=== PATIENT | female | born 1995 | race American Indian/Alaskan Native ===

== ENCOUNTER 2020-10-04 18:25 | Emergency (ER) | payer SELFPAY | END 2020-10-04 23:10 | disposition left against medical advice (07) | LOC: ED 18:25 ==

== ENCOUNTER 2020-10-05 10:36 | Emergency (ER) | payer BC ==
--- NOTE | 2020-10-05 12:04 | Event Note ---
ED Screening Note ED Screening Note: N/V began a week ago 4-5 x a day states that her panic attacks have gotten worse she denies marijuana use no diarrhea states she takes zofran at home with some relief takes hydroxyzine and escitalopram at home constipation for a week can keep liquids down only pmhx anxiety no allergies to meds LNMP 2 days ago no abd surgeries This initial assessment/diagnostic orders/clinical plan/treatment(s) is/are subject to change based on patients health status, clinical progression and re- assessment by fellow clinical providers in the ED. Further treatment and workup at subsequent clinical providers discretion. Patient/guardian urged not to elope from the ED as their condition may be serious if not clinically assessed and managed. Initial orders include: labs, UA, XR
--- NOTE | 2020-10-05 13:53 | Emergency Department Report ---
ED General Adult HPI - General Chief complaint: Nausea/Vomiting/Diarrhea Stated complaint: ABD PAIN/VOMITING/CHEST PAIN Time Seen by Provider: 10/05/20 12:01 Source: patient Mode of arrival: Ambulatory Limitations: No Limitations - History of Present Illness Initial comments: 25-year-old -[place] Citizen female presents to the emergency room reporting she has had nausea and vomiting for 1 week. She reports that she has been having a panic attack. Patient reports that she has a history of panic attacks and is currently taking Lexapro 5 mg, Zofran 4 mg and Vistaril 50 mg daily. Patient states that she typically will have nausea and vomiting with her panic attacks. Patient does admit that she has been off her medications for a week and got refi lled on 10/04/2020. Patient reports her last menstrual period was 10/02/2020. Patient reports she is followed by Dr. Lugo for her mental health and last seen 1 month ago and has an appointment next week. Patient states that she is not able to hold anything down. Patient states she is taking all her medications this morning. Onset/Timin -: week(s) - Related Data Allergies Allergy/AdvReac Type Severity Reaction Status Date / Time peanut Allergy Unknown Verified 10/05/20 11:56 shellfish derived AdvReac Unknown Verified 10/05/20 11:56 ED Review of Systems ROS: Stated complaint: ABD PAIN/VOMITING/CHEST PAIN Other details as noted in HPI Comment: All other systems reviewed and negative ED Past Medical Hx - Past Medical History Additional medical history: ANXIETY / PANIC ATTACK - Surgical History Past Surgical History?: No - Social History Smoking Status: Never Smoker Substance Use Type: None ED Physical Exam - General Limitations: No Limitations General appearance: alert, in no apparent distress, anxious - Head Head exam: Present: atraumatic, normocephalic - Eye Eye exam: Present: normal appearance - ENT ENT exam: Present: mucous membranes moist - Neck Neck exam: Present: normal inspection - Respiratory Respiratory exam: Present: normal lung sounds bilaterally. Absent: respiratory distress - Cardiovascular Cardiovascular Exam: Present: regular rate, normal rhythm. Absent: systolic murmur, diastolic murmur, rubs, gallop - GI/Abdominal GI/Abdominal exam: Present: soft, normal bowel sounds - Extremities Exam Extremities exam: Present: normal inspection - Back Exam Back exam: Present: normal inspection - Neurological Exam Neurological exam: Present: alert, oriented X3 - Psychiatric Psychiatric exam: Present: normal affect, normal mood - Skin Skin exam: Present: warm, dry, intact, normal color. Absent: rash ED Course Vital Signs 10/05/20 11:59 Temperature 99.0 F Pulse Rate 64 Respiratory 18 Rate Blood Pressure 116/73 O2 Sat by Pulse 99 Oximetry - Reevaluation(s) Reevaluation #1: 10/05/20 15:53 Patient is lying in the bed comfortably. ED Medical Decision Making - Medical Decision Making 25-year-old -[place] Citizen female presents to the emergency room reporting she has had nausea and vomiting for 1 week. She reports that she has been having a panic attack. Patient reports that she has a history of panic attacks and is currently taking Lexapro 5 mg, Zofran 4 mg and Vistaril 50 mg daily. Patient states that she typically will have nausea and vomiting with her panic attacks. Patient does admit that she has been off her medications for a week and got refilled on 10/04/2020. Patient reports her last menstrual period was 10/02/2020. Patient reports she is followed by Dr. Lugo for her mental health and last seen 1 month ago and has an appointment next week. Patient states that she is not able to hold anything down. Patient states she is taking all her medications this morning. Patient has had no episodes of vomiting since she has been in [facility] room. Patient will be discharge she has stable vital signs and labs are stable. Patient can follow-up with her mental health provider. Critical care attestation.: If time is entered above; I have spent that time in minutes in the direct care of this critically ill patient, excluding procedure time. ED Disposition Clinical Impression: Anxiety and depression Disposition: DC-01 TO HOME OR SELFCARE Is pt being admited?: No Does the pt Need Aspirin: No Condition: Stable Instructions: Managing Anxiety, Adult Additional Instructions: All your labs are stable. Continue with your chronic medication for your anxiety and depression. Follow-up with your mental health provider. Referrals: PRIMARY CARE, [Primary Care Provider] - 3-5 Days [facility] [Other] - 3-5 Days
[2020-10-05] MEDS ORDERED: ONDANSETRON 4 MG ODT TAB PO ONE (13:57)
[2020-10-05 14:58] LABS: Basophils # (Auto) 0.1 K/mm3 (0.0-0.1); Basophils % (Auto) 0.6 % (0.0-1.8); Eosinophils # (Auto) 0.1 K/mm3 (0.0-0.4); Eosinophils % (Auto) 0.7 % (0.0-4.3); Hemoglobin 13.2 gm/dl (10.1-14.3); Lymphocytes % (Auto) 32.4 % (13.4-35.0); Mean Corpuscular HGB Conc 34 % (30-34); Mean Corpuscular Volume 92 fl (79-97); Monocytes # (Auto) 1.2 K/mm3 (0.0-0.8); Monocytes % (Auto) 9.7 % (0.0-7.3); Platelet Count 317 K/mm3 (140-440); Red Blood Count 4.24 M/mm3 (3.65-5.03); Red Cell Distribution Width 14.1 % (13.2-15.2)
[2020-10-05 15:03] LABS: Bacteria,Urine 1+ /HPF (Negative); Bilirubin,Urine NEG (Negative); Blood,Urine LG (Negative); Color,Urine Yellow (Yellow); Mucus,Urine 2+ /HPF
[2020-10-05 15:09] LABS: RBC,Urine > 182.0 /HPF (0.0-6.0)
[2020-10-05 15:23] LABS: Alanine Aminotransferase 7 units/L (7-56); Albumin 4.4 g/dL (3.9-5); Blood Urea Nitrogen 10 mg/dL (7-17); Calcium 9.1 mg/dL (8.4-10.2); Hemolysis Index 17
[2020-10-05 15:51] LABS: BUN/Creatinine Ratio 14
--- NOTE | 2020-10-05 15:55 | XRay Report ---
ABDOMEN 2 VIEW(S) INDICATION / CLINICAL INFORMATION: n/v, constipation. COMPARISON: None available. FINDINGS: TUBES / LINES: None. BOWEL GAS PATTERN: No significant abnormality. No significant constipation. ADDITIONAL FINDINGS: No free intraperitoneal air. IMPRESSION: Unremarkable abdomen. Signer Name: Shayne Flowers MD Signed: 10/05/2020 3:50 PM Workstation Name: Richard [email or web address] - [id number]
[2020-10-05 16:41] VITALS: BP 125/85
== END 2020-10-05 16:45 | disposition home or self-care (01) ==
LOC: ED 10:36
DX: F41.9 Anxiety disorder, unspecified (principal); F32.9 Major depressive disorder, single episode, unspecified; R11.2 Nausea with vomiting, unspecified; Z91.010 Allergy to peanuts; Z91.013 Allergy to seafood
CPT/HCPCS: 36415; 74019; 80053; 81001; 83690; 84703; 85025; 87086; Q0162